=== PATIENT | female | born 1970 | race Caucasian/White ===

== ENCOUNTER 2024-12-03 11:01 | Day surgery (SDC) | payer BC ==
[2024-12-03 11:22] VITALS: TEMP 97.6
[2024-12-03] MEDS: IV FLUID CONTINUATION 1,000 ML IV ONE (11:25)
[2024-12-03] MEDS: LACTATED RINGERS 1,000 ML IV SCH (11:26)
[2024-12-03 11:31] LABS: Glucose,Whole Blood 109 mg/dL (70-110)
[2024-12-03] MEDS ORDERED: PROPOFOL 10 MG/ML 20 ML VIAL IV ONE (12:08)
--- NOTE | 2024-12-03 12:18 | P.PCN ---
Date of Procedure: 12/03/24 Procedure(s) Performed: BRIEF HISTORY: Patient is a 54-year-old, pleasant, white female female scheduled upper endoscopy as a part evaluation of longstanding history of GERD/Novoa's esophagus.. PROCEDURE PERFORMED: Esophagogastroduodenoscopy with biopsy. PREOPERATIVE DIAGNOSIS: Longstanding history of GERD. IV sedation per anesthesia. PROCEDURE: After informed consent was obtained, the patient was brought into the endoscopy unit. IV sedation was administered by Anesthesia under continuous monitoring. Initially the Olympus GIF-140 video endoscope was inserted into the mouth. Esophagus intubated without any difficulty. It was gradually advanced into the stomach and duodenum and carefully examined. The bulb and the second part of the duodenum appeared normal. The scope at this time was withdrawn to the stomach, adequately insufflated with air, and upon careful examination, mucosa of the antrum a 78 mm gastric submucosal polyp that was biopsied. Mucosa of the, body, cardia and the fundus appeared normal. The scope was then withdrawn into the esophagus. Hiatal hernia noted. The GE junction was located at 39 cm from the incisors. There were 2 islands of of Novoa's appearing mucosa proximal to the GE junction measuring 2 mm and 3 mm in size at the biopsy. The esophagus appeared normal. There were no erosions or ulcerations seen and the patient tolerated the procedure well. IMPRESSION: 1. Short segment Novoa's esophagus status post biopsy. 2. Small hiatal hernia 3. Gastric antral submucosal polyp status post biopsy. RECOMMENDATIONS: The findings of this examination were discussed with the patient as well as her family. She was advised to continue with omeprazole 20 mg daily and follow antireflux measures.. The biopsy confirms the presence of Novoa's esophagus, she can have repeat upper endoscopy in 3 years
[2024-12-03 12:42] VITALS: BP 114/74; PULSE 77; RESP 18
== END 2024-12-03 13:06 | disposition home or self-care (01) ==
LOC: ORWHC2ENDO 11:01
PROVIDERS: ATTEND Internal Medicine Gastroenterology
DX: K29.70 Gastritis, unspecified, without bleeding (principal); K31.7 Polyp of stomach and duodenum; K21.00 Gastro-esophageal reflux disease with esophagitis, without bleeding; K22.70 Barrett's esophagus without dysplasia; K44.9 Diaphragmatic hernia without obstruction or gangrene; J44.89 Other specified chronic obstructive pulmonary disease; E11.9 Type 2 diabetes mellitus without complications; I10 Essential (primary) hypertension; E78.5 Hyperlipidemia, unspecified; M41.9 Scoliosis, unspecified; Z87.19 Personal history of other diseases of the digestive system; Z98.890 Other specified postprocedural states; Z79.84 Long term (current) use of oral hypoglycemic drugs; Z79.890 Hormone replacement therapy; Z79.02 Long term (current) use of antithrombotics/antiplatelets; Z79.899 Other long term (current) drug therapy
CPT/HCPCS: 88305; 88313; 88342; 43239; J2704